=== PATIENT | female | born 1990 | race African-American/Black ===

== ENCOUNTER 2020-11-09 17:25 | Observation (INO) ==
[2020-11-09] MEDS ORDERED: MEPERIDINE 25 MG/1 ML VIAL IV STA (19:11)
[2020-11-09] MEDS ORDERED: ONDANSETRON 4 MG/2 ML VIAL IV STA (19:12)
[2020-11-09 19:41] LABS: Basophils % 0.3 % (0.0-0.8); Eosinophils # 0.2 10*3/uL (0.0-0.87); Eosinophils % 2.4 % (0.00-10.9); Hematocrit 39.3 VOL% (35.7-47.0); Hemoglobin 13.7 GM/DL (12.0-16.0); Immature Granulocytes % 0.4 %; Immature Granulocytes Absolute 0.03 #; Lymphocytes # 2.1 10*3/uL (1.4-4.0); Lymphocytes % 29.8 % (21.3-54.2); Mean Corpuscular HGB Conc 34.9 GM/DL (32-36); Mean Corpuscular Volume 76.9 FL (87-102); Mean Platelet Volume 12.2 FL (9.6-12.0); Monocytes % 9.2 % (1.7-12.7); Neutrophils % 57.9 % (38.7-73.9); Platelet Count 343 T/CUMM (130-400); Red Blood Count 5.11 MC/CUMM (3.8-5.5); Red Cell Distribution Width 14.6 % (9.3-17.3)
[2020-11-09 19:47] LABS: PT Patient Result 10.5 SECS (9.8-11.9)
[2020-11-09 19:58] LABS: Alanine Aminotransferase 47 U/L (13-56); Albumin 3.3 G/DL (3.4-5.0); Alkaline Phosphatase 79 U/L (45-117); Aspartate Amino Transferase 26 U/L (0-37); Bilirubin,Total < 0.39 MG/DL (0.2-1.0); Blood Urea Nitrogen 14 MG/DL (7-18); Calcium 8.8 MG/DL (8.5-10.1); Estimated Glom Filtration Rate 122 ML/MIN; Glucose 117 MG/DL (74-106); Osmolality,Calculated 280.4 MOS/KG (273-304)
[2020-11-09 21:16] LABS: Bilirubin,Urine Negative (Negative); Blood, Urine Small mg/dL (Negative); Glucose,Urine (UA) Negative (Negative); Ketones,Urine Negative (Negative); Mucus,Urine Occasional /LPF (Occasional); Nitrite,Urine Negative (Negative); Protein,Urine Negative; RBC,Urine 2 /HPF (0-4); Squamous Epithelial Cell,Urine Occasional /HPF (0-10); Urine Appearance CLEAR (Clear); Urine Color Yellow (Yellow); Urine Urobilinogen < 2.0 EU/DL (0.2-1.0); WBC,Urine 1 /HPF (0-6)
[2020-11-09 21:20] LABS: Barbiturates Screen,Urine Negative (Negative); Benzodiazepines Screen,Urine Negative (Negative); Cannabinoid Screen,Urine Negative (Negative); Opiate Screen,Urine Negative (Negative); Phencyclidine Screen,Urine Negative (Negative)
[2020-11-09] MEDS ORDERED: GLUCAGON 1 MG VIAL IM PRN (22:21)
[2020-11-09] MEDS ORDERED: DEXTROSE 50% 25 GM/50 ML VIAL IV PRN (22:21)
[2020-11-09] MEDS ORDERED: guaiFENesin/DM ER 600-30 MG TABLET PO PRN (22:21)
[2020-11-09] MEDS ORDERED: diphenhydrAMINE CAP 25 MG CAPSULE PO PRN (22:21)
[2020-11-09] MEDS ORDERED: NICOTINE 21 MG/24 HR PATCH TRANSDERM PRN (22:21)
[2020-11-09] MEDS ORDERED: ONDANSETRON 4 MG/2 ML VIAL IV PRN (22:21)
[2020-11-09] MEDS ORDERED: hydrALAZINE 20 MG/1 ML VIAL IV PRN (22:21)
[2020-11-09] MEDS: SODIUM CHLORIDE 0.9% 1,000 ML IV SCH (22:46)
[2020-11-10] MEDS: ACETAMINOPHEN 325 MG TABLET PO PRN ×2 (01:16→06:32)
[2020-11-10] MEDS: SODIUM CHLORIDE 0.9% 1,000 ML IV SCH ×3 (05:46→21:50)
[2020-11-10] MEDS: BUTALBITAL/ACETAMIN/CAFFEINE 50-325-40 MG TABLET PO PRN (11:17)
[2020-11-10] MEDS ORDERED: MECLIZINE 25 MG TABLET PO PRN (14:16)
[2020-11-10] MEDS: lisinopriL 5 MG TABLET PO SCH (14:46)
[2020-11-10] MEDS: IBUPROFEN 800 MG TABLET PO PRN (14:48)
[2020-11-11] MEDS: IBUPROFEN 800 MG TABLET PO PRN ×2 (01:14→20:40)
[2020-11-11] MEDS: ACETAMINOPHEN 325 MG TABLET PO PRN ×2 (05:09→08:39)
[2020-11-11 05:39] LABS: Basophils % 0.4 % (0.0-0.8); Eosinophils # 0.2 10*3/uL (0.0-0.87); Eosinophils % 2.4 % (0.00-10.9); Hematocrit 36.6 VOL% (35.7-47.0); Hemoglobin 12.5 GM/DL (12.0-16.0); Immature Granulocytes % 0.4 %; Immature Granulocytes Absolute 0.03 #; Lymphocytes # 2.1 10*3/uL (1.4-4.0); Lymphocytes % 29.6 % (21.3-54.2); Mean Corpuscular HGB Conc 34.2 GM/DL (32-36); Mean Corpuscular Volume 77.7 FL (87-102); Mean Platelet Volume 11.3 FL (9.6-12.0); Monocytes % 8.7 % (1.7-12.7); Neutrophils % 58.5 % (38.7-73.9); Platelet Count 310 T/CUMM (130-400); Red Blood Count 4.71 MC/CUMM (3.8-5.5); Red Cell Distribution Width 14.2 % (9.3-17.3); White Blood Count 7.1 T/CUMM (4-12)
[2020-11-11] MEDS: SODIUM CHLORIDE 0.9% 1,000 ML IV SCH (06:08)
[2020-11-11 06:35] LABS: Calcium 8.5 MG/DL (8.5-10.1); Osmolality,Calculated 279.3 MOS/KG (273-304)
[2020-11-11 07:52] LABS: Band Neutrophils 1 % (0-10); Eosinophils 1 % (0-10); Lymphocytes 29 % (20-55); Platelet Estimate Normal; Segmented Neutrophils 66 % (50-85); Total Cells Counted 100
[2020-11-11 07:53] LABS: Hypochromasia 2+
[2020-11-11] MEDS: lisinopriL 5 MG TABLET PO SCH (08:39)
[2020-11-11] MEDS ORDERED: TOPIRAMATE 25 MG TABLET PO SCH (21:00)
[2020-11-12] MEDS: IBUPROFEN 800 MG TABLET PO PRN (04:45)
[2020-11-12] MEDS: BUTALBITAL/ACETAMIN/CAFFEINE 50-325-40 MG TABLET PO PRN (04:46)
[2020-11-12 05:34] LABS: Basophils % 0.3 % (0.0-0.8); Eosinophils # 0.2 10*3/uL (0.0-0.87); Eosinophils % 2.7 % (0.00-10.9); Hematocrit 38.5 VOL% (35.7-47.0); Hemoglobin 13.3 GM/DL (12.0-16.0); Immature Granulocytes % 0.4 %; Immature Granulocytes Absolute 0.03 #; Lymphocytes # 2.1 10*3/uL (1.4-4.0); Lymphocytes % 26.3 % (21.3-54.2); Mean Corpuscular HGB Conc 34.5 GM/DL (32-36); Mean Corpuscular Volume 77.6 FL (87-102); Mean Platelet Volume 11.4 FL (9.6-12.0); Monocytes % 8.8 % (1.7-12.7); Neutrophils % 61.5 % (38.7-73.9); Platelet Count 300 T/CUMM (130-400); Red Blood Count 4.96 MC/CUMM (3.8-5.5); Red Cell Distribution Width 14.5 % (9.3-17.3); White Blood Count 7.8 T/CUMM (4-12)
[2020-11-12 06:09] LABS: Osmolality,Calculated 276.5 MOS/KG (273-304)
[2020-11-12] MEDS: lisinopriL 5 MG TABLET PO SCH (08:48)
[2020-11-12 12:17] VITALS: BP 123/66
== END 2020-11-12 13:32 | disposition home or self-care (01) ==
LOC: N.ED 17:25 → N.EDINP 17:25 → N.TELES 23:35
PROVIDERS: ADMIT Internal Medicine; ATTEND Internal Medicine